=== PATIENT | female | born 1995 | race Caucasian/White ===

== ENCOUNTER 2025-04-21 08:50 | Day surgery (SDC) | payer BC, SELFPAY ==
[2025-04-19 08:19] VITALS: BMI 47.2
[2025-04-19 09:03] LABS: Basophils # (Auto) 0.1 Thou/mm3 (0.0-0.2); Basophils % (Auto) 1 % (0-2.5); Eosinophils # (Auto) 0.3 Thou/mm3 (0.0-0.5); Eosinophils % (Auto) 4 % (0-10); Hematocrit 38.3 % (36.0-46.0); Hemoglobin 12.9 g/dL (12.0-16.0); Immature Granulocytes % (Auto) 0 % (0-0); Immature Granulocytes Auto 0.02 Thou/mm3 (0.00-0.00); Lymphocytes # (Auto) 1.7 Thou/mm3 (1.0-4.8); Lymphocytes % (Auto) 24 % (10-50); Mean Corpuscular HGB Conc 33.7 g/dl (31.0-37.0); Mean Corpuscular Hemoglobin 29.7 pg (25.0-35.0); Mean Corpuscular Volume 88 fL (80-100); Monocytes # (Auto) 0.7 Thou/mm3 (0.0-0.8); Monocytes % (Auto) 10 % (0-12); Neutrophils # (Auto) 4.3 Thou/mm3 (1.8-7.7); Neutrophils % (Auto) 61 % (37-80); Nucleated Red Blood Cell % 0 /100 WBC (0); Platelet Count 290 Thou/mm3 (140-440); RDW Standard Deviation 41.5 fL (36.4-46.3); Red Blood Count 4.34 Miln/mm3 (4.00-5.20); White Blood Count 7.1 Thou/mm3 (3.6-11.0)
[2025-04-19 09:21] LABS: Partial Thromboplastin Time 24.6 Seconds (22.0-36.0)
[2025-04-21] VITALS (8 sets, daily range): BP systolic 123–141; BP diastolic 63–87; PULSE 71–90; RESP 14–20; TEMP 36.5–37.2; O2SAT 96–99; BMI 47.1
[2025-04-21 09:58] LABS: HCG,Qualitative Serum Negative
[2025-04-21 10:02] LABS: Alanine Aminotransferase 17 U/L (10-49); Albumin, Serum 4.6 gm/dL (3.5-5.0); Albumin/Globulin Ratio 2.1 (1.2-2.2); Alkaline Phosphatase 79 U/L (46-116); Anion Gap 6 (7-16); Aspartate Amino Transferase 18 U/L (0-34); BUN/Creatinine Ratio 15 Ratio (12-20); Bilirubin,Total 0.6 mg/dL (0.3-1.2); Blood Urea Nitrogen 12 mg/dL (9-23); Calcium 8.9 mg/dL (8.3-10.6); Calcium (Corrected) 8.9 mg/dL (8.5-10.1); Carbon Dioxide 24.8 mMol/L (20.0-31.0); Chloride 110 mMol/L (98-107); Creatinine (Component) 0.8 mg/dL (0.6-1.3); Estimated Creatinine Clearance 147.6 mL/min (>60); Globulin 2.2 gm/dL (2.3-3.5); Glucose 96 mg/dL (74-106); Osmolality,Calculated 280 (275-295); Potassium 3.9 mMol/L (3.4-5.1); Sodium 141 mMol/L (136-145); Total Protein 6.8 gm/dL (5.7-8.2); eGFR > 60 See Note
[2025-04-21 10:16] LABS: Partial Thromboplastin Time 24.5 Seconds (22.0-36.0); Prothrombin Time 11.4 Seconds (9.0-12.2)
--- NOTE | 2025-04-21 11:35 | SUR.PHASEII ---
1131 patient drinking apple juice tolerating well
--- NOTE | 2025-04-21 11:41 | PD.SUROPNT ---
Date of Procedure 04/21/25 Pre Op Diagnosis Symptomatic varicose veins both lower extremities Post Op Diagnosis Same as preop diagnosis Procedure Varicose vein excisions bilateral lower extremity with 13 incision in the left leg and 8 incisions on the right Findings All marked varicose veins were successfully removed or disrupted Procedure Description With the patient standing in the preop area all varicose veins to removed were carefully marked with a sharpie pen. The patient was then brought to the operating room and general anesthesia was induced. A timeout was performed. The procedure was conducted by making a small skin molly with a #11 blade and all the marked areas then bluntly enlarging the incision with a mosquito clamp and sequentially excising or disrupting the veins. After all veins were either removed or disrupted hemostasis was obtained. The leg was then washed and dried and Steri-Strips were applied to the incisions. The leg was then wrapped with gauze and Kerlix and an Mario wrap. The patient woke well from anesthesia was moved to recovery in stable Anesthesia other (Laryngeal mask anesthesia) Pathology / specimen Other (Bilateral lower extremity varicose veins) Estimated Blood Loss 75 Condition Stable Disposition PACU Surgeon Hunter Salamanca MD Surgical Staff Operation Date: 04/21/25 12:00 Case Staff Anesthesiologist: Poli Urban RN First Assistant: Zuri Douglass
--- NOTE | 2025-04-21 11:54 | SUR.PHASEI ---
1157 Patient arrived to recovery resting comfortably in [facility], drowsy and talking with staff, breathing unlabored, vital signs stable, dressing intact to bilateral legs, steri-strips, abd, kerlix roll, pratima wraps, no bleeding noted, bilateral dorsalis pedis pulses present when palpated, patient has good circulation to bilateral lower extremities, skin color normal for patient and warm to touch, report received from Simon YOUNG/Dr. Urban and Martina MINOR
--- NOTE | 2025-04-21 12:35 | SUR.PHASEII ---
1235 patient drinking apple juice tolerating well
--- NOTE | 2025-04-21 13:14 | SUR.PHASEII ---
1314 Patient meets discharge criteria from recovery, awake and alert, breathing unlabored, vital signs stable, denies pain, dressing intact; no bleeding noted, drinking apple juice; denies nausea, patient able to dress herself into her clothing, discharge instructions given to patient and patient father, father signed discharge instructions. Patient given all her belongings prior to discharge, transported via wheelchair and left in a private vehicle.
== END 2025-04-21 13:14 | disposition home or self-care (01) ==
PROVIDERS: Anesthesiology; PCP Nurse Practitioner; Referring Provider Surgery Vascular Surgery; Visit Provider Surgery Vascular Surgery
PROC: (CPT 37785; principal; 2025-04-21 11:45)
DX: I83.813 Varicose veins of bilateral lower extremities with pain (principal)
CPT/HCPCS: 37766; 36415; 80053; 84703; 85025; 85610; 85730; A4217; A4649; J0131; J0690; J1100; J1885; J2250; J2405; J2704; J2765; J3010